=== PATIENT | male | born 1980 | race Asian ===

== ENCOUNTER 2024-05-29 14:32 | Emergency (ER) | payer OTHER, SELFPAY ==
[2024-05-29 14:54] VITALS: BP 135/86; PULSE 96; RESP 16; TEMP 36.6; O2SAT 99; BMI 28.7
--- NOTE | 2024-05-29 15:04 | ED.BACK ---
HPI - Back Pain/Injury <Trina Harris PA-C - Last Filed: 05/29/24 18:39> General Chief Complaint: Back Pain/Injury Stated Complaint: back px Time Seen by Provider: 05/29/24 15:04 Source: patient History of Present Illness HPI Narrative: Patient is a very pleasant 43-year-old male presents to the emergency room department with exacerbation of his right-sided thoracic back pain. Patient works at [employer], he hurt his back recently, was seen at [facility] urgent care for a work-related L and I injury. He was prescribed prednisone, and denies codeine. He has an appointment to see a spine surgeon tomorrow an MRI is scheduled this coming week. However he currently is taking nonsteroidals, he is finished the prednisone, and is currently taking the tizanidine with very limited relief of his discomfort and pain. Presents now to the emergency department with an exacerbation of his pain, he is unable to really walk, ambulate, all movement causes him extreme discomfort and pain, he was unable to sleep last night. Patient here requesting pain relief. No signs of cauda equina. His pain has not changed. He is chest pain has not moved. It just is not being well treated. Related Data Previous Rx's Medication Instructions Recorded ketorolac 10 mg tablet 10 mg PO TID PRN pain 5 days #15 05/29/24 tabs methocarbamol 750 mg tablet 750 mg PO TID #20 tabs 05/29/24 oxycodone 5 mg tablet 5 mg PO .qhs pain #10 tabs 05/29/24 Allergies Allergy/AdvReac Type Severity Reaction Status Date / Time No Known Drug Allergies Allergy Verified 05/29/24 14:56 Review of Systems <Trina Harris PA-C - Last Filed: 05/29/24 18:39> Review of Systems Narrative: Negative except as above Musculoskeletal Comments: Right-sided thoracic pain Patient History <Trina Harris PA-C - Last Filed: 05/29/24 18:39> tobacco type: vaping alcohol intake frequency: a few times a week Substance Use Type: does not use Exam <Trina Harris PA-C - Last Filed: 05/29/24 18:39> Initial Vital Signs Initial Vital Signs: Vital Signs Temperature 98 F 09/22/24 14:54 Pulse Rate 96 H 05/29/24 14:54 Respiratory Rate 16 05/29/24 14:54 Blood Pressure 135/86 05/29/24 14:54 Pulse Oximetry 99 05/29/24 14:54 Oxygen Delivery Method Room Air 05/29/24 14:54 Reviewed Const General: cooperative, healthy appearing, well developed and acute distress (Severe back pain) Eyes Pupils: PERRL EOM: EOM intact bilaterally Back/Spine/Pelvis Other: Right-sided paraspinal thoracic pain. Patient is standing in the room. Appears very uncomfortable. Any type of subtle movements, caused the patient extreme discomfort and pain. Skin Other: Warm pink and dry. Neuro General: patient alert, patient awake, patient oriented x3 and oriented Cranial Nerves: CN's II-XI intact bilaterally Cognition: normal cognition Speech: speech normal Gait: other (Limited due to pain) Extrem Other: Slow antalgic gait, patient is not moving very quickly, his range of motion of his extremities limited due to the fact that exacerbates his pain. Psych Appearance: grossly normal Mental Status: mental status grossly normal Speech and Movement: speech and movement normal Mood: congruent mood Affect: normal affect Attitude: cooperative Thought Process: normal Thought Content: normal Judgment: judgment good <Rohan Hubbard DO - Last Filed: 06/02/24 17:54> Initial Vital Signs Initial Vital Signs: Vital Signs Temperature 98 F 05/29/24 14:54 Pulse Rate 96 H 05/29/24 14:54 Respiratory Rate 16 05/29/24 14:54 Blood Pressure 135/86 05/29/24 14:54 Pulse Oximetry 99 05/29/24 14:54 Oxygen Delivery Method Room Air 05/29/24 14:54 Course <Trina Harris PA-C - Last Filed: 05/29/24 18:39> Orders Ordered: Discontinued Medications Ketorolac Tromethamine (Ketorolac 30 Mg/Ml Vial) 30 mg IM NOW ONE Stop: 05/29/24 15:27 Last Admin: 05/29/24 15:38 Dose: 30 mg Documented By: KAYLEIGH Oxycodone HCl (Oxycodone Ir 5 Mg Tablet) 5 mg PO NOW ONE Stop: 05/29/24 15:29 Last Admin: 05/29/24 15:42 Dose: 5 mg Documented By: SB Vital Signs Vital signs: Vital Signs - 8 hr 05/29/24 14:54 05/29/24 15:55 Temperature 98 F Pulse Rate 96 H 90 Respiratory Rate 16 16 Blood Pressure 135/86 131/88 Pulse Oximetry 99 99 Oxygen Delivery Method Room Air Room Air Reviewed <Rohan Hubbard DO - Last Filed: 06/02/24 17:54> Orders Ordered: Discontinued Medications Ketorolac Tromethamine (Ketorolac 30 Mg/Ml Vial) 30 mg IM NOW ONE Stop: 05/29/24 15:27 Last Admin: 05/29/24 15:38 Dose: 30 mg Documented By: KAYLEIGH Oxycodone HCl (Oxycodone Ir 5 Mg Tablet) 5 mg PO NOW ONE Stop: 05/29/24 15:29 Last Admin: 05/29/24 15:42 Dose: 5 mg Documented By: SB Vital Signs Vital signs: Vital Signs - 8 hr 05/29/24 14:54 05/29/24 15:55 Temperature 98 F Pulse Rate 96 H 90 Respiratory Rate 16 16 Blood Pressure 135/86 131/88 Pulse Oximetry 99 99 Oxygen Delivery Method Room Air Room Air MDM - Back Pain/Injury <Trina Harris PA-C - Last Filed: 05/29/24 18:39> [facility] Narrative Medical decision making narrative: Pleasant 43-year-old male currently has right-sided thoracic back pain/paraspinal pain. Currently being treated from a recent L and I injury. Was prescribed prednisone, tizanidine, currently not controlling his discomfort and pain. Currently taking nonsteroidals with limited relief. Currently has an appointment with a spine surgeon and an MRI this coming week. Here for pain control. No signs of cauda equina. No changes in his pain. No sciatic nerve pain. Patient had a rough night was unable to sleep last night. Patient appears extremely uncomfortable. Currently no recent injury, trauma or fall. 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 Exam is negative for any acute red flags. Patient given Toradol shot, and oral oxycodone. Patient has pain relief prior discharge. Patient ambulating much better prior to discharge. Differential diagnosis; exacerbation of ongoing right-sided thoracic paraspinal musculoskeletal pain Discharge Plan Departure Patient Disposition: Home Clinical Impression: Thoracic back pain Qualifiers: Chronicity: acute Back pain laterality: right Qualified Code(s): M54.6 - Pain in thoracic spine Thoracic myofascial strain Qualifiers: Encounter type: initial encounter Qualified Code(s): S29.019A - Strain of muscle and tendon of unspecified wall of thorax, initial encounter Instructions: DI for Muscle Strain, DI for Back Spasm Prescriptions: New methocarbamol 750 mg tablet 750 mg PO TID Qty: 20 0RF ketorolac 10 mg tablet 10 mg PO TID PRN (Reason: pain) 5 Days Qty: 15 0RF oxycodone 5 mg tablet 5 mg PO .qhs Qty: 10 0RF Referrals: Miscellaneous,Doctor, MD [Primary Care Provider] - Stand Alone Forms: Patient Portal/API ED Sign-out <Rohan Hubbard, - Last Filed: 06/02/24 17:54> Cosign ED Attending Cosignature Attestation: Dr Hubbard Co-Sign Statement: I was available for consultation during this patient's emergency department visit. This chart is signed by myself for administrative purposes only. I did not have direct contact with this patient during this visit. They were seen independently by the APC.
[2024-05-29] MEDS: KETOROLAC 30 MG/ML VIAL IM (15:38)
[2024-05-29] MEDS: OXYCODONE IR 5 MG TABLET PO (15:42)
[2024-05-29 15:55] VITALS: BP 131/88; PULSE 90; RESP 16; O2SAT 99
== END 2024-05-29 16:00 | disposition home or self-care (01) ==
PROVIDERS: Emergency Provider Physician Assistant
DX: S29.019A Strain of muscle and tendon of unspecified wall of thorax, initial encounter (principal); X50.1XXA Overexertion from prolonged static or awkward postures, initial encounter; Y99.0 Civilian activity done for income or pay
CPT/HCPCS: 96372; 99283; 99284; J1885

== ENCOUNTER 2024-06-05 14:44 | Inpatient (IN) | payer SELFPAY ==
[2024-06-05] VITALS (16 sets, daily range): BP systolic 107–141; BP diastolic 68–83; PULSE 82–99; RESP 16–20; TEMP 36.5–37.4; O2SAT 94–100; BMI 28.7
[2024-06-05] MEDS: KETOROLAC 30 MG/ML VIAL 15 MG IV (15:29)
[2024-06-05 18:18] LABS: Urine Volume 10mL (spun)
[2024-06-05 18:19] LABS: Bacteria Urine None Seen; RBC Urine 0-1/HPF (0-5/HPF); Squamous Epithelial Cell Urine None Seen (0-5/HPF); WBC Urine 0-1/HPF (0-5/HPF)
[2024-06-05 18:19] LABS: Add Manual Diff / Slide Review NO; Basophils Absolute Auto 100 /uL (0-100); Basophils Percent Auto 0.4 % (0-2); Eosinophils Absolute Auto 100 /uL (0-450); Eosinophils Percent Auto 0.6 % (2-4); Hematocrit 30.9 % (41-53); Hemoglobin 10.3 g/dL (13.5-17.5); Lymphocytes Absolute Auto 1200 /uL (1100-4500); Lymphocytes Percent Auto 8.9 % (25-40); Mean Corpuscular HGB Conc 33.1 % (30-36); Mean Corpuscular Hemoglobin 24.8 PG (26-34); Mean Corpuscular Volume 74.8 fL (80-100); Monocytes Absolute Auto 1400 /uL (0-900); Monocytes Percent Auto 9.9 % (3-14); Neutrophils Absolute Auto 11100 /uL (1500-7000); Neutrophils Percent Auto 80.2 % (50-75); Platelet Count 692 X10^3/uL (150-400); Red Blood Cell Count 4.14 X10^6/uL (4.5-5.9); Red Cell Distribution Width 14.6 % (11.6-14.8); White Blood Cell Count 13.8 X10^3/uL (4.5-11.0)
[2024-06-05 18:23] LABS: HEMOLYSIS < 15 (0-50)
[2024-06-05 18:25] LABS: Ictotest Urine Positive (Negative)
[2024-06-05 18:26] LABS: BUN Creatinine Ratio 17.9 (6-22); Blood Urea Nitrogen 15 mg/dL (9-20); Carbon Dioxide 21 mmol/L (22-32); Chloride 101 mmol/L (98-107); Estimated Glomerular Filt Rate > 60 mL/min (>60); Glucose 111 mg/dL (70-100); Potassium 4.3 mmol/L (3.4-5.1); Sodium 133 mmol/L (137-145); Uric Acid 4.7 mg/dL (3.5-8.5)
[2024-06-05 18:39] LABS: C-Reactive Protein Quant 14.8 mg/dL (<1.0)
[2024-06-05] MEDS: HYDROCODONE/ACET 5/325 TABLET 1 TAB PO ×2 (18:39→23:49)
[2024-06-05 18:47] LABS: Erythrocyte Sedimentation Rate > 140 MM/HR (0-15)
--- NOTE | 2024-06-05 19:01 | ED_ITS ---
HPI - Extremity Problem General Chief complaint: Extremity Problem,Nontraumatic Stated complaint: Gout Flare Time Seen by Provider: 06/05/24 15:17 Source: patient Mode of arrival: EMS History of Present Illness HPI Narrative: Patient is a 43 old male. History of gout. No other diagnosed medical problems. Takes colchicine at home as needed and allopurinol on a daily basis. Is here for evaluation of what he states is a gout flare. He has had symptoms for the past several days. He was not been able to walk for the past couple days because of the discomfort. Initially started in his right lower extremity but then spread to his left lower extremity in his now in his right arm. He has had polyarthralgia before because of his gout. He was also had gout in all these joints individually. Denies fevers. He has been taking his colchicine at home along with his allopurinol. Related Data Previous Rx's Medication Instructions Recorded methocarbamol 750 mg tablet 750 mg PO TID #20 tabs 05/29/24 oxycodone 5 mg tablet 5 mg PO .qhs pain #10 tabs 05/29/24 Allergies Allergy/AdvReac Type Severity Reaction Status Date / Time No Known Drug Allergies Allergy Verified 05/29/24 14:56 Review of Systems Review of Systems Narrative: See HPI Patient History Social History Smoking Status: Current some day smoker Smoking Status: Current some day smoker tobacco type: vaping alcohol intake frequency: a few times a week Substance Use Type: marijuana Exam Initial Vital Signs Initial Vital Signs: Vital Signs Blood Pressure 117/81 06/05/24 14:47 HENMT Head: normal to inspection and normocephalic Skin General: no rashes or lesions noted Neuro General: patient alert, patient awake and moves all extremities Extrem Other: patient does have warmth and tenderness to palpation of the right knee, right ankle, left ankle, right elbow and right wrist. Course Orders Ordered: ED Orders 06/05/24 15:13 Basic Metabolic Panel Stat C-Reactive Protein Quant Stat Complete Blood Count AUTO DIFF Stat Erythrocyte Sedimentation Rate Stat Uric Acid Stat 06/05/24 17:51 Ictotest Urine Stat Urine Culture Stat Urine Microscopic Stat 06/05/24 18:12 Covid-19 + FLU A/B + RSV - PCR Stat 06/05/24 21:25 Blood Culture Stat Acetaminophen (Acetaminophen 325 Mg Tablet) 650 mg PO Q6H PRN PRN Reason: Fever/Mild Pain (1-3) Hydrocodone Bitart/Acetaminophen (Hydrocodone/Acet 5/325 Tablet) 1 tab PO Q4H PRN PRN Reason: Pain, Moderate (4-6) Colchicine (Colchicine 0.6 Mg Tablet) 0.6 mg PO BID TIFFANY Famotidine (Famotidine 20 Mg Tablet) 20 mg PO BID TIFFANY Sodium Chloride (Normal Saline 0.9%) 1,000 mls @ 75 mls/hr IV CONT TIFFANY Stop: 06/06/24 09:00 Ibuprofen (Ibuprofen 400 Mg Tablet) 400 mg PO Q8HR PRN PRN Reason: Pain, Mild (1-3) Naloxone HCl (Naloxone 0.4 Mg/Ml Vial) 0.2 mg IV Q2MIN PRN PRN Reason: Opiate Reversal Ondansetron HCl (Ondansetron 4 Mg/2 Ml Inj) 4 mg IV Q8HR PRN PRN Reason: Nausea And Vomiting Prednisone (Prednisone 20 Mg Tablet) 20 mg PO DAILY TIFFANY Discontinued Medications Hydrocodone Bitart/Acetaminophen (Hydrocodone/Acet 5/325 Tablet) 1 tab PO NOW ONE Stop: 06/05/24 18:29 Last Admin: 06/05/24 18:39 Dose: 1 tab Documented By: ROSIBEL Colchicine (Colchicine 0.6 Mg Tablet) 1.2 mg PO NOW ONE Stop: 06/05/24 19:04 Last Admin: 06/05/24 19:14 Dose: 1.2 mg Documented By: ROSIBEL Hydromorphone HCl (Hydromorphone 1 Mg Inj) 1 mg IV NOW ONE Stop: 06/05/24 21:10 Last Admin: 06/05/24 21:18 Dose: 1 mg Documented By: ROSIBEL Ketorolac Tromethamine (Ketorolac 30 Mg/Ml Vial) 15 mg IV NOW ONE Stop: 06/05/24 15:18 Last Admin: 06/05/24 15:29 Dose: 15 mg Documented By: JERRELL Prednisone (Prednisone 20 Mg Tablet) 20 mg PO NOW ONE Stop: 06/05/24 21:48 Last Admin: 06/05/24 21:59 Dose: 20 mg Documented By: ROSIBEL Vital Signs Vital signs: Vital Signs - 8 hr 06/05/24 15:00 06/05/24 15:00 06/05/24 18:36 Pulse Rate 85 88 Respiratory Rate Blood Pressure 109/71 Pulse Oximetry 96 95 Oxygen Delivery Method 06/05/24 18:37 06/05/24 18:37 06/05/24 18:37 Pulse Rate 82 83 Respiratory Rate 16 Blood Pressure 107/70 107/70 Pulse Oximetry 99 98 Oxygen Delivery Method Room Air 06/05/24 21:27 06/05/24 21:28 06/05/24 21:28 Pulse Rate 94 H 91 H Respiratory Rate Blood Pressure 118/79 Pulse Oximetry 94 98 Oxygen Delivery Method 06/05/24 21:30 06/05/24 21:30 06/05/24 21:40 Pulse Rate 95 H Respiratory Rate Blood Pressure 123/82 Pulse Oximetry 98 97 Oxygen Delivery Method 06/05/24 21:46 06/05/24 21:47 Pulse Rate 96 H Respiratory Rate Blood Pressure 140/83 Pulse Oximetry 99 Oxygen Delivery Method MDM - Extremity (Nontraumatic) Lab Data 06/05/24 15:13 06/05/24 15:13 Labs: Lab Results 06/05/24 06/05/24 06/05/24 Range/Units 15:13 17:51 18:12 WBC 13.8 H (4.5-11.0) X10^3/uL RBC 4.14 L (4.5-5.9) X10^6/uL Hgb 10.3 L (13.5-17.5) g/dL Hct 30.9 L (41-53) % MCV 74.8 L (80-100) fL MCH 24.8 L (26-34) PG MCHC 33.1 (30-36) % RDW 14.6 (11.6-14.8) % Plt Count 692 H (150-400) X10^3/uL Neut % (Auto) 80.2 H (50-75) % Lymph % (Auto) 8.9 L (25-40) % [place] % (Auto) 9.9 (3-14) % Eos % (Auto) 0.6 L (2-4) % Baso % (Auto) 0.4 (0-2) % Neut # (Auto) 77141 H (7262-8599) /uL Lymph # (Auto) 1200 (9337-1185) /uL [place] # (Auto) 1400 H (0-900) /uL Eos # (Auto) 100 (0-450) /uL Baso # (Auto) 100 (0-100) /uL ESR > 140 H (0-15) MM/HR Sodium 133 L (137-145) mmol/L Potassium 4.3 (3.4-5.1) mmol/L Chloride 101 (98-107) mmol/L Carbon Dioxide 21 L (22-32) mmol/L BUN 15 (9-20) mg/dL Creatinine 0.84 (0.66-1.25) mg/dL Estimated GFR > 60 (>60) mL/min BUN/Creatinine Ratio 17.9 (6-22) Glucose 111 H (70-100) mg/dL Uric Acid 4.7 (3.5-8.5) mg/dL Calcium 9.0 (8.4-10.2) mg/dL C-Reactive Protein 14.8 H (<1.0) mg/dL Ur Bilirubin Confirm Positive H (Negative) Urine RBC 0-1/hpf (0-5/HPF) Urine WBC 0-1/hpf (0-5/HPF) Ur Squamous Epith Cells None seen (0-5/HPF) Urine Bacteria None seen (None) Vol Urine Centrifuged 10ml (spun) SARS-CoV-2 (PCR) Negative (Negative) Influenza A (RT-PCR) Flu a negative (NEGATIVE) Influenza B (RT-PCR) Flu b negative (NEGATIVE) RSV (PCR) Negative (Negative) Urine Dip Bedside Urine Glucose Negative Bedside Urine Bilirubin + 1 Bedside Urine Ketone ++ 40 Urine Specific [place] 1.015 Bedside Urine Occult Blood - Negative Bedside Urine pH 6.0 Bedside Urine Protein +/- 15 Bedside Urine Urobilinogen +/- 1mg Bedside Urine Nitrite - Negative Bedside Urine Leukocytes +/- 15 Esterase MDM Narrative Medical decision making narrative: Patient does have a leukocytosis. Also has an elevation in his ESR and CRP however his uric acid is negative. He was afebrile. His history is consistent with gout. He states he has been diagnosed with gout in his had gout in all these joints in conjunction and also independently in the past. Also considered other etiologies such as septic joint however the joints are not necessarily red. There was no signs of cellulitis. Has no chest pain or shortness of breath or fevers. Will hold on antibiotics however blood cultures were obtained. Patient can not ambulate because of his discomfort despite medications here in the ER. He was given a dose of colchicine which provided no relief to his pain. Discussed the case with Dr. Carlos hospitalist on-call who will admit for further evaluation and treatment. A dose of oral steroids was given here in the emergency department prior to admission. Discharge Plan Departure Patient Disposition: Admitted as Observation Clinical Impression: Gout, Polyarthralgia Admit Date/Time: 06/05/24 21:47 Admit Provider: Kalen Carlos
[2024-06-05] MEDS: COLCHICINE 0.6 MG TABLET 1.2 MG PO (19:14)
[2024-06-05 20:02] LABS: Influenza A - CEPHEID Flu A NEGATIVE (NEGATIVE); Influenza B - CEPHEID Flu B NEGATIVE (NEGATIVE); Respiratory Syncytial Virus Negative (Negative)
[2024-06-05 20:05] LABS: COVID-19 CEPHEID 4-PLEX PCR Negative (Negative)
[2024-06-05] MEDS: HYDROMORPHONE 1 MG INJ IV (21:18)
[2024-06-05] MEDS: predniSONE 20 MG TABLET PO (21:59)
[2024-06-05] MEDS: SODIUM CHLORIDE 0.9% 1,000 ML 75 ML IV (23:12)
[2024-06-05] MEDS: FAMOTIDINE 20 MG TABLET PO (23:49)
[2024-06-06] MEDS: OXYCODONE IR 5 MG TABLET PO ×6 (01:31→23:41)
[2024-06-06] MEDS: KETOROLAC 30 MG/ML VIAL 15 MG IV ×2 (02:26→14:00)
[2024-06-06] MEDS: HYDROMORPHONE 1 MG INJ IV ×3 (02:27→15:18)
[2024-06-06 04:00] VITALS: BP 98/61; PULSE 88; RESP 16; TEMP 35.8; O2SAT 97
--- NOTE | 2024-06-06 04:25 | PM.HP.1 ---
History of Present Illness History of Present Illness Chief complaint: Gout Flare Narrative: 43-year-old man with past medical history of severe gout presents with multiple joint pain. Per the patient report, the patient has severe gout with multiple flare-up in the past. The patient states that he has multiple joints affected. The patient is on allopurinol daily with colchicine as needed when he has gout flare up. However over the last few days, the patient has multiple joint both in his upper and lower extremity with increasing pain and warmth. The patient denies any swelling in his joint. The patient did take multiple dose of colchicine at home without any relief. The patient also takes them oxycodone to help with his pain but was unsuccessful. Otherwise the patient denies any fever, chills, nausea, vomiting, diarrhea, chest pain or shortness of breath . In our emergency room, the patient was hemodynamically stable. WBC was 13 and hemoglobin at 10. ESR and CRP are elevated. Due to severe pain our ER physician had to give both oral opioid and IV Dilaudid. The patient also received colchicine, IV toradol and oral prednisone.? PFSH Social History household members: significant other Smoking Status: Current some day smoker Meds Home Medications and Allergies Home Medications Medication Instructions Recorded Confirmed Type methocarbamol 750 mg tablet 750 mg PO TID #20 tabs 05/29/24 06/05/24 Rx allopurinol 100 mg tablet 300 mg PO DAILY gout pain 06/05/24 06/05/24 History oxycodone 5 mg tablet 5 mg PO Q3-4H PRN Pain (Scale 06/05/24 06/05/24 History Score 4-6) Allergies Allergy/AdvReac Type Severity Reaction Status Date / Time No Known Drug Allergies Allergy Verified 05/29/24 14:56 Review of Systems Review of Systems ROS: Yes All systems reviewed with the patient and are negative except as otherwise documented Exam Vital Signs (past 8 hours): - 06/05/24 21:27 06/05/24 21:28 06/05/24 21:28 Temperature Pulse Rate 94 H 91 H Respiratory Rate Blood Pressure 118/79 Pulse Oximetry 94 98 Oxygen Delivery Method Oxygen Flow Rate 06/05/24 21:30 06/05/24 21:30 06/05/24 21:40 Temperature Pulse Rate 95 H Respiratory Rate Blood Pressure 123/82 Pulse Oximetry 98 97 Oxygen Delivery Method Oxygen Flow Rate 06/05/24 21:46 06/05/24 21:47 06/05/24 21:53 Temperature 99.3 F Pulse Rate 96 H Respiratory Rate Blood Pressure 140/83 Pulse Oximetry 99 Oxygen Delivery Method Oxygen Flow Rate 06/05/24 22:00 06/05/24 22:00 06/05/24 22:30 Temperature Pulse Rate 90 84 Respiratory Rate Blood Pressure 134/83 Pulse Oximetry 99 98 Oxygen Delivery Method Room Air Oxygen Flow Rate 06/05/24 22:30 06/05/24 23:00 06/06/24 04:00 Temperature 97.7 F 96.5 F L Pulse Rate 93 H 88 Respiratory Rate 19 16 Blood Pressure 141/80 H 118/68 98/61 Pulse Oximetry 100 97 Oxygen Delivery Method Oxygen Flow Rate 0 0 Oxygen Delivery Method Room Air Oxygen Flow Rate 0 Narrative Exam Narrative: GENERAL: The patient is not in any acute distressed. Awake and alert. HEENT: Nonicteric sclerae, PERRLA, EOMI. Oropharynx clear. Moist mucous membranes. Conjunctivae appear well perfused. HEART: Regular rate and rhythm without murmurs. No lower extremities edema. LUNGS: Clear to auscultation bilaterally. No wheezing, crackles or rhonchi ABDOMEN: Soft, positive bowel sounds, nontender. SKIN: No rash, no excessive bruising, petechiae, or purpura. NEUROLOGIC: AxO x 3. Cranial nerves II-XII intact without motor/sensory deficit. Objective Labs 06/05/24 15:13 06/05/24 15:13 Labs: Laboratory Results - last 24 hr 06/05/24 06/05/24 06/05/24 15:13 17:51 18:12 WBC 13.8 H RBC 4.14 L Hgb 10.3 L Hct 30.9 L MCV 74.8 L MCH 24.8 L MCHC 33.1 RDW 14.6 Plt Count 692 H Neut % (Auto) 80.2 H Lymph % (Auto) 8.9 L [place] % (Auto) 9.9 Eos % (Auto) 0.6 L Baso % (Auto) 0.4 Neut # (Auto) 88402 H Lymph # (Auto) 1200 [place] # (Auto) 1400 H Eos # (Auto) 100 Baso # (Auto) 100 ESR > 140 H Sodium 133 L Potassium 4.3 Chloride 101 Carbon Dioxide 21 L BUN 15 Creatinine 0.84 Estimated GFR > 60 BUN/Creatinine Ratio 17.9 Glucose 111 H Uric Acid 4.7 Calcium 9.0 C-Reactive Protein 14.8 H Ur Bilirubin Confirm Positive H Urine RBC 0-1/hpf Urine WBC 0-1/hpf Ur Squamous Epith Cells None seen Urine Bacteria None seen Vol Urine Centrifuged 10ml (spun) SARS-CoV-2 (PCR) Negative Influenza A (RT-PCR) Flu a negative Influenza B (RT-PCR) Flu b negative RSV (PCR) Negative Assessment & Plan Assessment & Plan narrative: Acute severe flare up of gout. Admit the patient to medical observation. Of note multiple joint is affected in both upper and lower extremities. The patient pain is severe and he's unable to ambulate at this time.? Will continue colchicine, IV toradol as needed as well as IV Dilaudid. Will continue prednisone. IV fluid.? DVT prophylaxis SCDs and early ambulation.? Code status full code.? Disposition likely home in 1 to 2 days. Time-Based Coding :: [TOTAL MINUTES] spent with patient and on the chart (including review of chart, obtaining history, exam, reviewing outside data, placing orders, documenting exam and treatment plan, and counseling patient) on [DATE].
[2024-06-06] MEDS: ACETAMINOPHEN 325 MG TABLET 650 MG PO ×2 (07:37→14:00)
[2024-06-06 08:00] VITALS: BP 108/70; PULSE 78; RESP 16; TEMP 36.1; O2SAT 99
[2024-06-06 08:28] LABS: Add Manual Diff / Slide Review NO; Basophils Absolute Auto 0 /uL (0-100); Basophils Percent Auto 0.2 % (0-2); Eosinophils Absolute Auto 0 /uL (0-450); Hematocrit 29.7 % (41-53); Hemoglobin 9.6 g/dL (13.5-17.5); Lymphocytes Absolute Auto 900 /uL (1100-4500); Lymphocytes Percent Auto 6.5 % (25-40); Mean Corpuscular HGB Conc 32.2 % (30-36); Mean Corpuscular Hemoglobin 24.1 PG (26-34); Mean Corpuscular Volume 74.9 fL (80-100); Monocytes Absolute Auto 1000 /uL (0-900); Monocytes Percent Auto 7.3 % (3-14); Neutrophils Absolute Auto 11400 /uL (1500-7000); Platelet Count 700 X10^3/uL (150-400); Red Blood Cell Count 3.97 X10^6/uL (4.5-5.9); Red Cell Distribution Width 14.1 % (11.6-14.8); White Blood Cell Count 13.2 X10^3/uL (4.5-11.0)
[2024-06-06] MEDS: COLCHICINE 0.6 MG TABLET PO ×2 (08:36→19:47)
[2024-06-06] MEDS: FAMOTIDINE 20 MG TABLET PO ×2 (08:36→19:47)
[2024-06-06] MEDS: predniSONE 20 MG TABLET PO ×2 (08:36→11:32)
[2024-06-06] MEDS: methocarbamoL 500 MG TABLET 750 MG PO ×3 (08:36→19:45)
[2024-06-06] MEDS: allopurinoL 100 MG TABLET 300 MG PO (08:36)
[2024-06-06] MEDS: SENNOSIDES 8.6 MG TABLET PO ×2 (08:36→19:46)
[2024-06-06] MEDS: DOCUSATE 100 MG CAPSULE PO (08:36)
[2024-06-06 08:46] LABS: BUN Creatinine Ratio 22.9 (6-22); Blood Urea Nitrogen 19 mg/dL (9-20); Calcium 8.5 mg/dL (8.4-10.2); Carbon Dioxide 22 mmol/L (22-32); Chloride 99 mmol/L (98-107); Estimated Glomerular Filt Rate > 60 mL/min (>60); Glucose 148 mg/dL (70-100); HEMOLYSIS < 15 (0-50); Potassium 4.4 mmol/L (3.4-5.1); Sodium 130 mmol/L (137-145)
[2024-06-06] MEDS: polyethylene glycoL 3350 17 GM POWD.PACK PO (09:30)
--- NOTE | 2024-06-06 11:17 | PT.IIE ---
Physical Therapy Inpatient Evaluation/Re-Eval M1 PT/OT-IP Prior Functional Status Start: 06/06/24 10:22 Freq: NEEDED Status: Active Protocol: Document 06/06/24 10:38 MB (Rec: 06/06/24 11:17 MB [id number]) Medical Review Prior Functional Status Medical History Reviewed Yes Diet/Fluid Consistency Regular Communication WNLs. For diet, pt states that he has worked on his diet as far as gout instigators Mobility and Gait I, worked at [employer], commuted to work Activities of Daily Living and IADL's I Social History Household Members significant other Living Arrangements House Number of Floors (Floors) One Floor Number of Stairs To Enter/Railing? 1 platform step to enter Home Environment Standard Height Toilet,Walk in Shower,Tub/Shower Home Equipment Hand Held Shower Additional Social History Comment Pt works for [employer] and currently on strike M2 PT-IP Current Condition Start: 06/06/24 10:22 Freq: NEEDED Status: Active Protocol: Document 06/06/24 10:38 MB (Rec: 06/06/24 11:17 MB [id number]) Physical Therapy Current Condition Current Condition Evaluation Date 06/06/24 Treatment Diagnosis Gout M3 PT-IP Subjective Start: 06/06/24 10:22 Freq: NEEDED Status: Active Protocol: Document 06/06/24 10:38 MB (Rec: 06/06/24 11:17 MB [id number]) Subjective Physical Therapy Visit Type Type Initial Evaluation Visit Start Time 10:38 Visit Stop Time 11:05 Number of RIVET PASSER Visits 0 Physical Therapy Visit Comments Patient Comments Pt reports pain has been progressive, started in right arm and elbow, then to knees, then to feet and then in left arm and elbow. He has been in the recliner at home for two weeks. Therapy Pain Assessment Pain When Pain Assessed During Mobility Pain Present Pain Present Pain Reported Location all limbs Intensity 12 Scale Used Numeric (0 - 10) M4 PT-IP Mobility and Gait Start: 06/06/24 10:22 Freq: NEEDED Status: Active Protocol: Document 06/06/24 10:38 MB (Rec: 06/06/24 11:17 MB [id number]) PT-Bed Mobility Assessment Supine to Sit Supine to Sit Standby Assistance,Bedrails Sit to Supine Sit to Supine Standby Assistance,Bedrails Scooting Scooting to Edge of Bed Standby Assistance Scooting Up and Down in Bed Standby Assistance PT-Transfer Assessment Sit to and From Stand Sit to and from Stand Minimal Assistance,1 Person Assistance,Use of Upper Extremities Equipment Transfer Assistive Device None Orthotic/Prosthetic Devices or Brace: No Comments Mobility Comments Pt states that he cannot stand all the way up, pushes walker out from in front of him and returns to sitting EOB. High pain in swollen joints, worse in feet with attempted standing PT-Balance Assessment Sitting Balance and Reactions Static Sitting Balance Ability Normal Dynamic Sitting Balance Ability Normal Standing Balance and Reactions Static Standing Balance Ability Poor Dynamic Standing Balance Ability Poor M5 PT-IP Objective Assessments Start: 06/06/24 10:22 Freq: NEEDED Status: Active Protocol: Document 06/06/24 10:38 MB (Rec: 06/06/24 11:17 MB [id number]) Orientation Orientation/Cognition Level of Alertness Alert Orientation Name,Age,Birthday,Month,Date, Year,Day of Week,Place, Situation Language Function Ability No Deficits Noted Safety Awareness Decreased Safety Awareness Memory Description No Deficits Noted Gross Range of Motion Upper Extremity ROM Assessment Bilaterally Impaired Impairments Shoulders normal, elbow wrists and hands are swollen and painful and pt self-limits ROM Lower Extremity ROM Assessment Bilaterally Impaired Impairments Hips are normal and knees, ankles and feet are swollen and painful and pt self-limits ROM Strength Upper Extremity Strength Assessment Bilaterally Impaired Lower Extremity Strength Assessment Bilaterally Impaired Comments Strength Comments Pt cannot tolerate formal MMT d/t pain and range limitations , functional weakness B elbows , wrists, hands, knees, ankles and feet no greater than 2/5 observed Coordination Assessment Gross Coordination Gross Coordination Impaired Sensation Assessment Comments Sensation Comments Pt does not tolerate PT touching him d/t pain Muscle Tone Muscle Tone WNL Yes M6 PT-IP Treatment Start: 06/06/24 10:22 Freq: NEEDED Status: Active Protocol: Document 06/06/24 10:38 MB (Rec: 06/06/24 11:17 MB [id number]) Physical Therapy Treatment Education Education Provided Safety M7 PT-IP Assessment and Plan Start: 06/06/24 10:22 Freq: NEEDED Status: Active Protocol: Document 06/06/24 10:38 MB (Rec: 06/06/24 11:17 MB [id number]) PT Summary Assessment and Plan Potential Rehabilitation Potential Fair Status of Condition at Evaluation Evolving Summary Impairments Pain,ROM,Strength,Balance, Coordination,Sensation,Bed Mobility,Transfers,Gait, Activity Tolerance Progress Towards Goals Slow Progress due to Pain Assessment Summary Pt presents with pain and edema B elbows, wrists, hands, knees, ankles and feet and he does not tolerate formal range or MMT. He mobilizes in bed with use of rail and he cannot stand all the way up or complete SPT to recliner this a.m. Encouraged pt to ask for assistance from nsg for mobility and to try to get up to the recliner with assistance for supper tonight. Con't to progress mobility as pt tolerates. Goals Bed Mobility Goal Independent Transfer Goal Independent,Front Wheeled Walker,Four Wheeled Walker Gait Goal Independent,Front Wheel Walker ,Four Wheel Walker Gait Distance 150 Other Goals Pt will ascend and descend platform step with LRAD and no more than CGA to allow safe home entry. Progress gait to without AD or to LRAD Days to Meet Goals 10 Frequency of Treatment Frequency Of Treatment Once a Day Treatment Plan Physical Therapy Treatment Plan Bed Mobility Training,Transfer Training,Gait Training, Therapeutic Exercise,Balance Retraining,Discharge Planning, Hot or Cold Pack,Neuromuscular Re-ed,Coordination Retraining ,Manual Therapy Weight Bearing Status Allowed Weight Bearing Amount (enter % No restrictions or #) (%) Recommendations To Nursing Amount of Assist Needed 2 Person Assist Discharge Recommendations PT Discharge Recommendations Home with Assistance Other Discharge Recommendations Pt has not yet mobilized much with PT and will progress recs as appropriate including LRAD rec, limited mobilization d/t pain Transportation Needs at Discharge Private Vehicle
--- NOTE | 2024-06-06 11:36 | PM.PN.1 ---
Subjective Subjective Interval history: From night doctor: 3-year-old man with past medical history of severe gout presents with multiple joint pain. Per the patient report, the patient has severe gout with multiple flare-up in the past. The patient states that he has multiple joints affected. The patient is on allopurinol daily with colchicine as needed when he has gout flare up. However over the last few days, the patient has multiple joint both in his upper and lower extremity with increasing pain and warmth. The patient denies any swelling in his joint. The patient did take multiple dose of colchicine at home without any relief. The patient also takes them oxycodone to help with his pain but was unsuccessful. Otherwise the patient denies any fever, chills, nausea, vomiting, diarrhea, chest pain or shortness of breath . In our emergency room, the patient was hemodynamically stable. WBC was 13 and hemoglobin at 10. ESR and CRP are elevated. Due to severe pain our ER physician had to give both oral opioid and IV Dilaudid. The patient also received colchicine, IV toradol and oral prednisone.? S: joints are improving but still sore and swollen. Especially the knees and ankles. He takes chronic allopurinol 300 mg daily. Exam Vital Signs (past 8 hours): - 06/06/24 04:00 06/06/24 08:00 Temperature 96.5 F L 97.0 F L Pulse Rate 88 78 Respiratory Rate 16 16 Blood Pressure 98/61 108/70 Pulse Oximetry 97 99 Oxygen Flow Rate 0 0 Oxygen Delivery Method Room Air Oxygen Flow Rate 0 Narrative Exam Narrative: NAD, alert and oriented. Fluent speech. Lungs are clear, normal rate and effort. Heart is regular, no murmur gallop or rub. Abdomen is soft, non distended. Extremities are free of edema. Swollen knees, not red or warm. Somewhat swollen ankles and MTPs, not red or warm. Minimally tender. Objective Labs 06/06/24 08:10 06/06/24 08:10 Labs: Laboratory Results - last 24 hr 06/05/24 06/05/24 06/05/24 15:13 17:51 18:12 WBC 13.8 H RBC 4.14 L Hgb 10.3 L Hct 30.9 L MCV 74.8 L MCH 24.8 L MCHC 33.1 RDW 14.6 Plt Count 692 H Neut % (Auto) 80.2 H Lymph % (Auto) 8.9 L [place] % (Auto) 9.9 Eos % (Auto) 0.6 L Baso % (Auto) 0.4 Neut # (Auto) 93429 H Lymph # (Auto) 1200 [place] # (Auto) 1400 H Eos # (Auto) 100 Baso # (Auto) 100 ESR > 140 H Sodium 133 L Potassium 4.3 Chloride 101 Carbon Dioxide 21 L BUN 15 Creatinine 0.84 Estimated GFR > 60 BUN/Creatinine Ratio 17.9 Glucose 111 H Uric Acid 4.7 Calcium 9.0 C-Reactive Protein 14.8 H Ur Bilirubin Confirm Positive H Urine RBC 0-1/hpf Urine WBC 0-1/hpf Ur Squamous Epith Cells None seen Urine Bacteria None seen Vol Urine Centrifuged 10ml (spun) SARS-CoV-2 (PCR) Negative Influenza A (RT-PCR) Flu a negative Influenza B (RT-PCR) Flu b negative RSV (PCR) Negative 06/06/24 08:10 WBC 13.2 H RBC 3.97 L Hgb 9.6 L Hct 29.7 L MCV 74.9 L MCH 24.1 L MCHC 32.2 RDW 14.1 Plt Count 700 H Neut % (Auto) 86.0 H Lymph % (Auto) 6.5 L [place] % (Auto) 7.3 Eos % (Auto) 0.0 L Baso % (Auto) 0.2 Neut # (Auto) 84029 H Lymph # (Auto) 900 L [place] # (Auto) 1000 H Eos # (Auto) 0 Baso # (Auto) 0 ESR Sodium 130 L Potassium 4.4 Chloride 99 Carbon Dioxide 22 BUN 19 Creatinine 0.83 Estimated GFR > 60 BUN/Creatinine Ratio 22.9 H Glucose 148 H Uric Acid Calcium 8.5 C-Reactive Protein Ur Bilirubin Confirm Urine RBC Urine WBC Ur Squamous Epith Cells Urine Bacteria Vol Urine Centrifuged SARS-CoV-2 (PCR) Influenza A (RT-PCR) Influenza B (RT-PCR) RSV (PCR) [facility] Social History household members: significant other Smoking Status: Current some day smoker Assessment & Plan Assessment & Plan narrative: 1. Acute gout polyarthritis flare, present on admission and active. This is improving. -continue IV steroids, as well as colchicine. Observation status. LANG: 10/1. Time-Based Coding :: [TOTAL MINUTES] spent with patient and on the chart (including review of chart, obtaining history, exam, reviewing outside data, placing orders, documenting exam and treatment plan, and counseling patient) on [DATE].
--- NOTE | 2024-06-06 13:52 | CM.DANOTE ---
Patient is a 43 yo male who was admitted OBS Status on 06/05/24 for Gout Flare. Pt has [employer] for insurance and his PCP is not listed. EMR was reviewed. Per MD, pt with hx of severe gout and flare ups and admitted for pain management and swelling. Per PT, pt only able to stand limited due to pain and swelling of his joints but typically independent at baseline and anticipating progress for home when stable. SW met briefly bedside with pt and he confirms he lives in [place] with his Sig Other and is active and independent at baseline and does not use DME for ambulation, drives and commutes to work at [employer] but they are currently on strike and not driving in to work at this time. Pt has mostly been staying in his recliner the past week due to pain. Pt preference is home when stable and pain better managed and anticipates his Sig Other can transport home. Pt does not anticipate any further needs once his pain and swelling reduced. Plan: SW to follow for further PT/OT to confirm safe discharge home and any further identified discharge planning needs. DAVID Roque Discharge Planning/Care Management CM Discharge Assessment Start: 06/06/24 13:51 Freq: Status: Active Protocol: Document 06/06/24 13:51 BF (Rec: 06/06/24 13:52 BF [id number]) Discharge Planning Assessment Assigned Supervisor [employer]ic [employer] DAVID Hall DPOA/Assigned Designee Name none Advance Directives? No Advance Directives on File No History Provided By Patient,Medical Record Has Patient been admitted in last 30 No days? Prior Living Arrangements House Household Members significant other Type of transporation used prior to Drives own vehicle admit Independent with ADL's Yes Is patient alert and oriented? Yes Caregiver for Another No Barriers to Discharge No Discharge Plan Home Transportation Arrangement Likely Sig Other will transport at d/c Referrals Initiated None needed Whiteboard Updated in Patient Room with Yes name and ext. # of Supervisor Mechanic [employer]aking Review Status In Process Please Provide Date Initial DC 06/06/24 Assessment Was Performed Next Review Type Continued Stay Review
[2024-06-06 17:00] VITALS: BP 100/52; PULSE 70; RESP 16; TEMP 36.2; O2SAT 99
[2024-06-06 20:00] VITALS: BP 108/73; PULSE 71; RESP 20; TEMP 37; O2SAT 99
[2024-06-07] MEDS: HYDROMORPHONE 1 MG INJ IV (02:45)
[2024-06-07 04:00] VITALS: BP 120/79; PULSE 71; RESP 18; TEMP 37; O2SAT 98
[2024-06-07] MEDS: ACETAMINOPHEN 325 MG TABLET 650 MG PO (04:15)
[2024-06-07] MEDS: OXYCODONE IR 5 MG TABLET PO ×2 (04:15→08:28)
[2024-06-07 08:00] VITALS: BP 106/68; PULSE 67; RESP 16; TEMP 36.1; O2SAT 98
[2024-06-07 08:20] LABS: Hematocrit 29.3 % (41-53); Hemoglobin 9.5 g/dL (13.5-17.5)
[2024-06-07] MEDS: allopurinoL 100 MG TABLET 300 MG PO (08:27)
[2024-06-07] MEDS: predniSONE 20 MG TABLET 40 MG PO (08:28)
[2024-06-07] MEDS: FAMOTIDINE 20 MG TABLET PO ×2 (08:28→20:54)
[2024-06-07] MEDS: COLCHICINE 0.6 MG TABLET PO ×2 (08:29→20:40)
[2024-06-07] MEDS: KETOROLAC 30 MG/ML VIAL 15 MG IV ×2 (08:29→22:13)
[2024-06-07] MEDS: polyethylene glycoL 3350 17 GM POWD.PACK PO (08:29)
[2024-06-07] MEDS: SENNOSIDES 8.6 MG TABLET PO ×2 (08:29→20:40)
[2024-06-07] MEDS: methocarbamoL 500 MG TABLET 750 MG PO ×3 (08:30→20:40)
[2024-06-07 08:43] LABS: BUN Creatinine Ratio 22.7 (6-22); Blood Urea Nitrogen 17 mg/dL (9-20); Calcium 8.7 mg/dL (8.4-10.2); Carbon Dioxide 24 mmol/L (22-32); Chloride 102 mmol/L (98-107); Estimated Glomerular Filt Rate > 60 mL/min (>60); Glucose 109 mg/dL (70-100); HEMOLYSIS < 15 (0-50); Potassium 4.6 mmol/L (3.4-5.1); Sodium 134 mmol/L (137-145)
--- NOTE | 2024-06-07 11:06 | CM.DPC ---
DCP Cont. Reviewed EMR and team rounds for status updates. Pt has been medically cleared for home d/c, his Significant Other will plan to transport him home. No further d/c needs identified at this time.
[2024-06-07] MEDS: HYDROCODONE/ACET 5/325 TABLET 2 TAB PO (11:55)
--- NOTE | 2024-06-07 12:14 | OT.IP.EVAL ---
Occupational Therapy Inpatient Evaluation/Re-Eval M1 PT/OT-IP Prior Functional Status Start: 06/06/24 10:22 Freq: NEEDED Status: Active Protocol: Document 06/07/24 12:15 [facility] (Rec: 06/07/24 12:31 [facility] [id number]) Medical Review Prior Functional Status Medical History Reviewed Yes Diet/Fluid Consistency Regular Communication WNLs. For diet, pt states that he has worked on his diet as far as gout instigators Mobility and Gait I, worked at [employer], commuted to work Activities of Daily Living and IADL's I Social History Household Members significant other Living Arrangements House Number of Floors (Floors) One Floor Number of Stairs To Enter/Railing? 1 platform step to enter Home Environment Standard Height Toilet,Walk in Shower,Tub/Shower Home Equipment Hand Held Shower Additional Social History Comment Pt works for [employer] and currently on strike M2 OT-IP Current Condition Start: 06/07/24 12:14 Freq: Status: Active Protocol: Document 06/07/24 12:15 [facility] (Rec: 06/07/24 12:31 [facility] [id number]) Occupational Therapy Current Condition Current Condition Evaluation Date 06/07/24 Treatment Diagnosis Gout Flare Diagnosis Onset Date 06/05/24 M3 OT- IP Subjective and Pain Start: 06/07/24 12:14 Freq: Status: Active Protocol: Document 06/07/24 12:15 [facility] (Rec: 06/07/24 12:31 [facility] [id number]) OT- Subjective Occupational Therapy Visit Type Type Initial Evaluation Visit Start Time 11:35 Visit Stop Time 12:14 Occupational Therapy Visit Comments Patient Comments Pt agreed to try to get up. Patient/Caregiver Goals To go home. OT Pain Assessment Pain When Pain Assessed At Rest Pain Present Pain Present Pain Reported Location all limbs Intensity 9 Scale Used Numeric (0 - 10) M4 OT- IP ADL's Start: 06/07/24 12:14 Freq: Status: Active Protocol: Document 06/07/24 12:15 [facility] (Rec: 06/07/24 12:31 [facility] [id number]) OT BBL-Kqas-Yvdrbce General Evaluation Self-Feeding Ability Standby Assistance Comments OT Self-Feeding Comments Assist with set-up. OT ADL-Grooming General Evaluation Grooming Ability Standby Assistance OT ADL-Oral Care Comments Oral Care Comments Not performed. OT ADL-Dressing Comments OT Dressing Comments Pt will need assist with dressing due to decreased use of right hand due to gout flare. OT ADL-Toileting Comments OT Toileting Comments Pt agreed best to get a BSC for home use. OT ADL-Bathing Comments OT Bathing Comments Pt will benefit from a shower chair. M5 OT- IP IADL's Start: 06/07/24 12:14 Freq: Status: Active Protocol: Document 06/07/24 12:15 [facility] (Rec: 06/07/24 12:31 [facility] [id number]) OT-Instrumental Activities of Daily Living Deficits IADL Deficits Identified Deficits Home Safety Awareness Awareness of Need for Assistance at Home Good Awareness Ability to Problem Solve Emergency Able to Problem Solve Situations Medication Management Medication Management No Deficits Identified Money Management Money Management No Deficits Identified Meal Preparation Meal Preparation Comments Pt will need assist. Institute Scientist Institute Scientist Comments Pt will need assist. M6 OT- IP Functional Cognition Start: 06/07/24 12:14 Freq: Status: Active Protocol: Document 06/07/24 12:15 [facility] (Rec: 06/07/24 12:31 [facility] [id number]) Cognitive Factors Limiting Selfcare Function Cognitive Ability Level of Alertness Alert Patient Orientation Name,Age,Birthday,Month,Date, Year,Day of Week,Place, Situation Attention Span Ability Capable of Focused Attention, Capable of Sustained Attention Ability to Follow Commands Able to Follow Multi-Step Commands Cognitive Comments Cognitive Assessment Comments Pt able to follow commands for ADL and mobility needs. OT- Vision and Hearing OT- Hearing Assessment OT- Hearing Assessment WFL OT- Vision Assessment Visual Acuity WFL M7 OT- IP Mobility and Balance Start: 06/07/24 12:14 Freq: Status: Active Protocol: Document 06/07/24 12:15 [facility] (Rec: 06/07/24 12:31 [facility] [id number]) OT- Bed Mobility Assessment Supine to Sit Supine to Sit Assist Standby Assistance Sit to Supine Sit to Supine Assist Standby Assistance Scooting Scooting to Edge of Bed Standby Assistance OT-Transfer Assessment Sit to and From Stand Sit to and from Stand Contact Guard Assistance Transfers Transfer Ability Contact Guard Assistance Technique Transfer Destination Bed Transfer Technique Stand Step Pivot Devices Transfer Assistive Devices Gait Belt,Platform Walker Comments Mobility Comments Pt able to get to the edge of bed with increased time. CGA to stand to the fww with right platform, CGA to walk to the window and back with very flexed posture. OT- Balance Assessment Sitting Balance and Reactions Static Sitting Balance Ability Good Dynamic Sitting Balance Ability Good Standing Balance and Reactions Static Standing Balance Ability Fair Dynamic Standing Balance Ability Poor M8 OT- IP Objective Assessments Start: 06/07/24 12:14 Freq: Status: Active Protocol: Document 06/07/24 12:15 [facility] (Rec: 06/07/24 12:31 [facility] [id number]) OT Gross Range of Motion Upper Extremity Range of Motion Assessment Bilaterally Impaired ROM Impairments Decreased at edge ROM RUE> LUE . OT Strength Comments Strength Comments At least 3-/5 throughout, not formally tested due to pain from gout flare. M9 OT- IP Assessment and Plan Start: 06/07/24 12:14 Freq: Status: Active Protocol: Document 06/07/24 12:15 [facility] (Rec: 06/07/24 12:31 [facility] [id number]) OT Summary Assessment and Plan Potential Rehabilitation Potential Good Analytic Complexity at Evaluation Moderate Summary OT Impairments Pain,Range of Motion,Strength, Balance,Functional Mobility, Self-Feeding,Grooming,Dressing ,Toileting,Bathing,Toilet Transfers,Shower Transfers, Activity Tolerance Progress Towards Goals Slow Progress due to Pain,Slow Progress due to Medical Issues,Slow Progress due to Activity Tolerance Assessment Summary Pt MOD complexity and main barriers are step, pain, decreased strength, ROM, and will need assist for ADL and mobility needs at this time. Pt will benefit from a BSC, shower chair, platform FWW, and wc. Pt to go home when medically stable. Goals Self-Feeding Goal Independent Grooming Goal Independent Dressing Goal Independent Toileting Goal Independent Bathing Goal Standby Assistance Toilet Transfer Goal Independent Shower Transfer Goal Standby Assistance Days to Meet Goals 7 Frequency of Treatment Frequency Of Treatment Once a Day Other frequency 5x/week Treatment Plan OT Treatment Plan ADL Training,Functional Mobility,Patient/Family Education,Discharge Planning Discharge Recommendations OT Discharge Recommendations Home with Assistance Home Equipment Needs platform walker versus fww, BSC, shower chair, wc Transportation Needs at Discharge Private Vehicle
--- NOTE | 2024-06-07 14:55 | PT.IPTN ---
Physical Therapy Treatment Note M2 PT-IP Current Condition Start: 06/06/24 10:22 Freq: NEEDED Status: Active Protocol: Document 06/06/24 10:38 MB (Rec: 06/06/24 11:17 MB [id number]) Physical Therapy Current Condition Current Condition Evaluation Date 06/06/24 Treatment Diagnosis Gout M3 PT-IP Subjective Start: 06/06/24 10:22 Freq: NEEDED Status: Active Protocol: Document 06/07/24 14:55 AB (Rec: 06/07/24 16:56 AB [id number]) Subjective Physical Therapy Visit Type Type Treatment Note Visit Start Time 14:55 Visit Stop Time 15:20 Number of GENERATING STATION MECHANIC Visits 0 Physical Therapy Visit Comments Patient Comments agreeable to do PT Therapy Pain Assessment Pain When Pain Assessed At Rest Pain Present Pain Present Pain Reported Location all limbs Intensity 5 Scale Used increases >10 with weight bearing Pain Behaviors Guarding,Wincing Pain Management Techniques Distraction,Elevation, Modification of Treatment,Re- positioning,Timing of Activity with Medications M4 PT-IP Mobility and Gait Start: 06/06/24 10:22 Freq: NEEDED Status: Active Protocol: Document 06/07/24 14:55 AB (Rec: 06/07/24 16:56 AB [id number]) PT-Bed Mobility Assessment Supine to Sit Supine to Sit Standby Assistance Sit to Supine Sit to Supine Standby Assistance PT-Transfer Assessment Sit to and From Stand Sit to and from Stand Standby Assistance Equipment Transfer Assistive Device Gait Belt,Front Wheeled Walker Orthotic/Prosthetic Devices or Brace: No Comments Mobility Comments pt supine in bed and agreeable to do PT. pt wanting to go home today. completed supine to sit SBA. able to sit on EOB SBA. completed sit to stand SBA and ambulated in room using FWW ~ 10 ft CGA to min A and cues. pt with c/o R wrist pain and unable to put weight due to pain. pt leans on FWW with R forearm with stooped posture. c/o increase pain on B feet/knees/elbow/ wrists. pt also refused to put non-skid socks on due to pain . informed pt regarding going into the house using FWW since pt was leaning on FWW and relying a lot for support. pt impulsive and stated that he can do it and lifted FWW up to simulate stair climbing but with LOB requiring min A for steadiness. pt ambulated back to the bed and lay back down SBA. informed pt regarding safety and educated again on how to do stairs but pt refused to do stairs. stated that if he needs to stay another night, he is ok with that than putting more work to his family to assist him. also informed pt regarding options for getting a FWW. pt will let therapy know if he wants one from [facility] or not. Gait Assessment Gait Gait Assistance Required: Contact Guard Assist,Minimum Assistance,1 Person Assist Assistive Devices Assistive Device Gait Belt,Front Wheeled Walker Orthotic/Prosthetic Devices or Brace: No Gait Deviations General Gait Pattern Antalgic,Decreased Stride Length,Decreased Feet Clearance,Flexed Trunk,Step-to Gait Factors Limiting Gait Function Factors Limiting Gait Function Decreased Activity Tolerance, Decreased Strength,Limited Range of Motion,Pain,Poor Balance,Poor Safety Awareness M5 PT-IP Objective Assessments Start: 06/06/24 10:22 Freq: NEEDED Status: Active Protocol: Document 06/06/24 10:38 MB (Rec: 06/06/24 11:17 MB [id number]) Orientation Orientation/Cognition Level of Alertness Alert Orientation Name,Age,Birthday,Month,Date, Year,Day of Week,Place, Situation Language Function Ability No Deficits Noted Safety Awareness Decreased Safety Awareness Memory Description No Deficits Noted Gross Range of Motion Upper Extremity ROM Assessment Bilaterally Impaired Impairments Shoulders normal, elbow wrists and hands are swollen and painful and pt self-limits ROM Lower Extremity ROM Assessment Bilaterally Impaired Impairments Hips are normal and knees, ankles and feet are swollen and painful and pt self-limits ROM Strength Upper Extremity Strength Assessment Bilaterally Impaired Lower Extremity Strength Assessment Bilaterally Impaired Comments Strength Comments Pt cannot tolerate formal MMT d/t pain and range limitations , functional weakness B elbows , wrists, hands, knees, ankles and feet no greater than 2/5 observed Coordination Assessment Gross Coordination Gross Coordination Impaired Sensation Assessment Comments Sensation Comments Pt does not tolerate PT touching him d/t pain Muscle Tone Muscle Tone WNL Yes M6 PT-IP Treatment Start: 06/06/24 10:22 Freq: NEEDED Status: Active Protocol: Document 06/07/24 14:55 AB (Rec: 06/07/24 16:56 AB [id number]) Physical Therapy Treatment Education Education Provided Safety M7 PT-IP Assessment and Plan Start: 06/06/24 10:22 Freq: NEEDED Status: Active Protocol: Document 06/07/24 14:55 AB (Rec: 06/07/24 16:56 AB [id number]) PT Summary Assessment and Plan Potential Rehabilitation Potential Fair Summary Impairments Pain,ROM,Strength,Balance, Coordination,Sensation, Cognition,Bed Mobility, Transfers,Gait,Activity Tolerance Progress Towards Goals Slow Progress due to Pain,Slow Progress due to Medical Issues Assessment Summary pt requiring CGA to min A with ambulation using FWW but limited due to c/o increase pain. pt leans forward with R forearm on FWW for support and presents with increase UE use to support during walking. (+) posterior LOB when pt attempted to lift FWW up to simulate lifting to a step requiring min A for recovery. pt has his family to assist him at home. will continue to assess progress. Goals Bed Mobility Goal Independent Transfer Goal Independent,Front Wheeled Walker Gait Goal Independent,Front Wheel Walker Gait Distance 150 Other Goals Pt will ascend and descend platform step with LRAD and no more than CGA to allow safe home entry. Progress gait to without AD or to LRAD Days to Meet Goals 10 Frequency of Treatment Frequency Of Treatment Once a Day Treatment Plan Physical Therapy Treatment Plan Bed Mobility Training,Transfer Training,Gait Training, Therapeutic Exercise,Balance Retraining,Discharge Planning, Hot or Cold Pack,Neuromuscular Re-ed,Coordination Retraining ,Manual Therapy Recommendations To Nursing Amount of Assist Needed 1 Person Assist Discharge Recommendations PT Discharge Recommendations Home with Assistance Transportation Needs at Discharge Private Vehicle
[2024-06-07 16:00] VITALS: BP 101/58; PULSE 66; RESP 16; TEMP 36.6; O2SAT 98
[2024-06-07] MEDS: HYDROCODONE/ACET 5/325 TABLET 1 TAB PO ×3 (16:27→23:54)
--- NOTE | 2024-06-07 16:47 | PM.PN.1 ---
Subjective Subjective Interval history: From night doctor: 43-year-old man with past medical history of severe gout presents with multiple joint pain. Per the patient report, the patient has severe gout with multiple flare-up in the past. The patient states that he has multiple joints affected. The patient is on allopurinol daily with colchicine as needed when he has gout flare up. However over the last few days, the patient has multiple joint both in his upper and lower extremity with increasing pain and warmth. The patient denies any swelling in his joint. The patient did take multiple dose of colchicine at home without any relief. The patient also takes them oxycodone to help with his pain but was unsuccessful. Otherwise the patient denies any fever, chills, nausea, vomiting, diarrhea, chest pain or shortness of breath . In our emergency room, the patient was hemodynamically stable. WBC was 13 and hemoglobin at 10. ESR and CRP are elevated. Due to severe pain our ER physician had to give both oral opioid and IV Dilaudid. The patient also received colchicine, IV toradol and oral prednisone.? S: joints are stable today but still sore and swollen, pain still 8-9 / 10 today. Especially the knees and ankles. He takes chronic allopurinol 300 mg daily. Exam Vital Signs (past 8 hours): Oxygen Delivery Method Room Air Oxygen Flow Rate 0 Narrative Exam Narrative: NAD, alert and oriented. Fluent speech. Lungs are clear, normal rate and effort. Heart is regular, no murmur gallop or rub. Abdomen is soft, non distended. Extremities are free of edema. Swollen knees, not red or warm. Somewhat swollen ankles and MTPs, not red or warm. Minimally tender. Objective Labs 06/07/24 07:40 06/07/24 07:40 Labs: Laboratory Results - last 24 hr 06/07/24 07:40 Hgb 9.5 L Hct 29.3 L Sodium 134 L Potassium 4.6 Chloride 102 Carbon Dioxide 24 BUN 17 Creatinine 0.75 Estimated GFR > 60 BUN/Creatinine Ratio 22.7 H Glucose 109 H Calcium 8.7 PFSH Social History household members: significant other Smoking Status: Current some day smoker Assessment & Plan Assessment & Plan narrative: 1. Acute gout polyarthritis flare, present on admission and active. This is improving. -continue IV steroids, as well as colchicine. -increased opiate pain needs today -will try to find outpatient rheum records - PT evaluation ordered today. Code: Full Dispo: likely 1-2 days in the hospital, depending on response to steroids and ability for ambulation. Time-Based Coding :: [TOTAL MINUTES] spent with patient and on the chart (including review of chart, obtaining history, exam, reviewing outside data, placing orders, documenting exam and treatment plan, and counseling patient) on [DATE].
[2024-06-07 22:00] VITALS: BP 114/68; PULSE 68; RESP 20; TEMP 35.8; O2SAT 97
[2024-06-08] MEDS: HYDROCODONE/ACET 5/325 TABLET 1 TAB PO ×3 (04:05→11:21)
[2024-06-08 04:25] VITALS: BP 113/69; PULSE 72; RESP 20; TEMP 35.8; O2SAT 97
[2024-06-08] MEDS: KETOROLAC 30 MG/ML VIAL 15 MG IV (06:21)
[2024-06-08 08:00] VITALS: BP 105/64; PULSE 63; RESP 14; TEMP 36.7; O2SAT 99
[2024-06-08] MEDS: FAMOTIDINE 20 MG TABLET PO (08:15)
[2024-06-08] MEDS: methocarbamoL 500 MG TABLET 750 MG PO (08:15)
[2024-06-08] MEDS: SENNOSIDES 8.6 MG TABLET PO (08:16)
[2024-06-08] MEDS: predniSONE 20 MG TABLET 40 MG PO (08:16)
[2024-06-08] MEDS: COLCHICINE 0.6 MG TABLET PO (08:16)
[2024-06-08] MEDS: allopurinoL 100 MG TABLET 300 MG PO (08:16)
[2024-06-08] MEDS: polyethylene glycoL 3350 17 GM POWD.PACK PO (08:17)
--- NOTE | 2024-06-08 10:45 | PT.IPTN ---
Physical Therapy Treatment Note M2 PT-IP Current Condition Start: 06/06/24 10:22 Freq: NEEDED Status: Active Protocol: Document 06/06/24 10:38 MB (Rec: 06/06/24 11:17 MB [id number]) Physical Therapy Current Condition Current Condition Evaluation Date 06/06/24 Treatment Diagnosis Gout M3 PT-IP Subjective Start: 06/06/24 10:22 Freq: NEEDED Status: Active Protocol: Document 06/08/24 11:09 TS (Rec: 06/08/24 11:21 TS [id number]) Subjective Physical Therapy Visit Type Type Treatment Note Visit Start Time 10:45 Visit Stop Time 11:08 Number of MARINE REPORTER Visits 1 Physical Therapy Visit Comments Patient Comments Pt is agreeable to PT. Therapy Pain Assessment Pain When Pain Assessed At Rest Pain Present Pain Present Pain Reported M4 PT-IP Mobility and Gait Start: 06/06/24 10:22 Freq: NEEDED Status: Active Protocol: Document 06/08/24 11:09 TS (Rec: 06/08/24 11:21 TS [id number]) PT-Bed Mobility Assessment Supine to Sit Supine to Sit Standby Assistance Sit to Supine Sit to Supine Standby Assistance Scooting Scooting to Edge of Bed Standby Assistance PT-Transfer Assessment Sit to and From Stand Sit to and from Stand Standby Assistance Equipment Transfer Assistive Device Gait Belt,Front Wheeled Walker Orthotic/Prosthetic Devices or Brace: No Comments Mobility Comments Supine to sit SBA with HOB elevated, pt does not use R hand. STS with FWW SBA, pt leans R arm on FWW. He ambulated ~30' in the room SBA with a slow step to gait and leaning on FWW. He performs steps x1 with FWW CGA. Pt was left back in bed, all needs met. Gait Assessment Gait Gait Assistance Required: Standby Assistance Assistive Devices Assistive Device Gait Belt,Front Wheeled Walker Orthotic/Prosthetic Devices or Brace: No Gait Deviations General Gait Pattern Antalgic,Decreased Stride Length,Decreased Feet Clearance,Flexed Trunk,Step-to Gait Factors Limiting Gait Function Factors Limiting Gait Function Decreased Activity Tolerance, Decreased Strength,Limited Range of Motion,Pain,Poor Balance,Poor Safety Awareness Stair Climbing Assessment Evaluation Level of Assist On Stairs Contact Guard Assistance Devices Stair Climbing Assistive Devices Front Wheel Walker Technique/Endurance Stair Climbing Direction Ascend and Descend Stair Climbing Technique Step to Step Number of Steps Climbed 1 PT-Balance Assessment Sitting Balance and Reactions Static Sitting Balance Ability Good Dynamic Sitting Balance Ability Good Standing Balance and Reactions Static Standing Balance Ability Good Dynamic Standing Balance Ability Good Device Used FWW M5 PT-IP Objective Assessments Start: 06/06/24 10:22 Freq: NEEDED Status: Active Protocol: Document 06/06/24 10:38 MB (Rec: 06/06/24 11:17 MB [id number]) Orientation Orientation/Cognition Level of Alertness Alert Orientation Name,Age,Birthday,Month,Date, Year,Day of Week,Place, Situation Language Function Ability No Deficits Noted Safety Awareness Decreased Safety Awareness Memory Description No Deficits Noted Gross Range of Motion Upper Extremity ROM Assessment Bilaterally Impaired Impairments Shoulders normal, elbow wrists and hands are swollen and painful and pt self-limits ROM Lower Extremity ROM Assessment Bilaterally Impaired Impairments Hips are normal and knees, ankles and feet are swollen and painful and pt self-limits ROM Strength Upper Extremity Strength Assessment Bilaterally Impaired Lower Extremity Strength Assessment Bilaterally Impaired Comments Strength Comments Pt cannot tolerate formal MMT d/t pain and range limitations , functional weakness B elbows , wrists, hands, knees, ankles and feet no greater than 2/5 observed Coordination Assessment Gross Coordination Gross Coordination Impaired Sensation Assessment Comments Sensation Comments Pt does not tolerate PT touching him d/t pain Muscle Tone Muscle Tone WNL Yes M6 PT-IP Treatment Start: 06/06/24 10:22 Freq: NEEDED Status: Active Protocol: Document 06/08/24 11:09 TS (Rec: 06/08/24 11:21 [id number]) Physical Therapy Treatment Education Education Provided Safety M7 PT-IP Assessment and Plan Start: 06/06/24 10:22 Freq: NEEDED Status: Active Protocol: Document 06/08/24 11:09 TS (Rec: 06/08/24 11:21 TS [id number]) PT Summary Assessment and Plan Potential Rehabilitation Potential Fair Summary Impairments Pain,ROM,Strength,Balance, Coordination,Sensation, Cognition,Bed Mobility, Transfers,Gait,Activity Tolerance Progress Towards Goals Slow Progress due to Pain,Slow Progress due to Medical Issues Assessment Summary Wu is making some progress with his mobility but is limited by pain and ongoing medical issues. He continues to perform bed mobility and gait SBA. He leans on FWW with R arm for balance, R hand is too painful to grasp handle. He progressed to stairs x1 on platform step. PT is recommending pt return home with assist. Goals Bed Mobility Goal Independent Transfer Goal Independent,Front Wheeled Walker Gait Goal Independent,Front Wheel Walker Gait Distance 150 Other Goals Pt will ascend and descend platform step with LRAD and no more than CGA to allow safe home entry. Progress gait to without AD or to LRAD Days to Meet Goals 10 Frequency of Treatment Frequency Of Treatment Once a Day Treatment Plan Physical Therapy Treatment Plan Bed Mobility Training,Transfer Training,Gait Training, Therapeutic Exercise,Balance Retraining,Discharge Planning, Hot or Cold Pack,Neuromuscular Re-ed,Coordination Retraining ,Manual Therapy Weight Bearing Status Allowed Weight Bearing Amount (enter % No restrictions or #) (%) Recommendations To Nursing Amount of Assist Needed 1 Person Assist Discharge Recommendations PT Discharge Recommendations Home with Assistance Transportation Needs at Discharge Private Vehicle
--- NOTE | 2024-06-08 11:37 | P.DS_ITS ---
History of Present Illness History of Present Illness Date Patient Seen: 06/08/24 Time Patient Seen: 11:37 Chief complaint: Gout Flare Narrative: 43-year-old man with past medical history of severe gout presents with multiple joint pain. Per the patient report, the patient has severe gout with multiple flare-up in the past. The patient states that he has multiple joints affected. The patient is on allopurinol daily with colchicine as needed when he has gout flare up. However over the last few days, the patient has multiple joint both in his upper and lower extremity with increasing pain and warmth. The patient denies any swelling in his joint. The patient did take multiple dose of colchicine at home without any relief. The patient also takes them oxycodone to help with his pain but was unsuccessful. Otherwise the patient denies any fever, chills, nausea, vomiting, diarrhea, chest pain or shortness of breath . In our emergency room, the patient was hemodynamically stable. WBC was 13 and hemoglobin at 10. ESR and CRP are elevated. Due to severe pain our ER physician had to give both oral opioid and IV Dilaudid. The patient also received colchicine, IV toradol and oral prednisone.? Discharge Providers Provider Date of admission: 06/08/24 10:12 Discharge Date: 06/08/24 Primary care physician: Doctor Cristal MD Consults: 06/05/24 22:02 Consult to Occupational Therapy Evaluate & Treat Comment: Physician Instructions: Evaluate and treat Consult to Physical Therapy Evaluate & Treat Comment: Physician Instructions: Evaluate and Treat Discharge provider: Terry Little DO Summary Hospital Course Discharge Diagnosis: 1. Acute gout polyarthritis flare, present on admission and active. Hospital Course: This is a 43 year old male with PMH of gout who presented with polyarthralgia and presumed gout flare. He improved with steroids and pain medication. He took a few days to improve, but did have slow improvement. Initially he had difficulty ambulating due to pain, was seen by PT. He had improvement and felt well enough and mobile enough to discharge home on 06/08. He was given a prescription for 40 mg of prednisone to continue until his symptoms resolve, though this timeframe is unknown. He was recommended to follow up with PCP to discuss ongoing steroid management for his flare after discharge, and to discuss taper of prednisone after his symptoms improve. Time Spent with Patient Time spent: Greater than 30 minutes Exam Vital Signs (past 8 hours): - 06/08/24 04:25 06/08/24 08:00 Temperature 96.4 F L 98.0 F Pulse Rate 72 63 Respiratory Rate 20 14 Blood Pressure 113/69 105/64 Pulse Oximetry 97 99 Oxygen Flow Rate 0 0 Oxygen Delivery Method Room Air Oxygen Flow Rate 0 Narrative Exam Narrative: NAD, alert and oriented. Fluent speech. Lungs are clear, normal rate and effort. Heart is regular, no murmur gallop or rub. Abdomen is soft, non distended. Extremities are free of edema. Swollen knees, not red or warm. Somewhat swollen ankles and MTPs, not red or warm. Minimally tender. Objective Labs 06/07/24 07:40 06/07/24 07:40 [facility] Social History household members: significant other Smoking Status: Current some day smoker Discharge Plan Discharge Plan Patient Disposition: Home Provider Discharge Comment: You were admitted to the hospital with gout flare. Improved with steroids. Continue steroids until flare resolved then you need to taper. I have sent 2 weeks of steroids for now, please follow up with your PCP to discuss ongoing management of gout and further adjustments of steroids. Discharge orders & Medications Prescriptions: New prednisone 20 mg Tablet 40 mg PO DAILY 14 Days Qty: 28 0RF Continued methocarbamol 750 mg tablet 750 mg PO TID Qty: 20 0RF allopurinol 100 mg tablet 300 mg PO DAILY Changed oxycodone 5 mg tablet 5 mg PO Q3-4H PRN (Reason: Pain (Scale Score 4-6)) Qty: 30 0RF Follow up/Referrals: Doctor Bee MD [Primary Care Provider] - Diet/Activity/Treatments Diet: Diet as Tolerated and Regular Activity: As tolerated, no restrictions. Visit Report/Discharge Packet Instructions: DI for Gout, Prednisone Stand Alone Forms: Patient Portal/API, Stroke Signs & Symptoms Discharge Data Primary Care Provider: Doctor Cristal
--- NOTE | 2024-06-08 13:44 | PC.NURSE ---
D/c summary reviewed with Pt. Discussed importance of no driving while taking narcotics. Pt agreeable to d/c, and confirmed all belongings were with him. Pt exited via w/c with RADIO RIGGER and friend to private vehicle.
== END 2024-06-08 13:47 | disposition home or self-care (01) | DRG 554 ==
LOC: ED 17:57 → AC 21:48
PROVIDERS: Internal Medicine; Admitting Provider Internal Medicine; Emergency Provider Emergency Medicine; Visit Provider Internal Medicine
DX: M10.9 Gout, unspecified (principal); F17.200 Nicotine dependence, unspecified, uncomplicated
CPT/HCPCS: 0241U; 36415; 80048; 81003; 81015; 84550; 85014; 85018; 85025; 85651; 86140; 87040; 87086; 96374; 96375; 97116; 97161; 97166; 97530; 99284; G0378; A9270; J1170; J1885

== ENCOUNTER → 2024-08-19 16:08 | Outpatient (CLI) | payer BC, SELFPAY ==
[2024-06-05 23:01] VITALS: BMI 28.7
[2024-08-19 17:45] LABS: Cholesterol 209 mg/dL (140-199); HDL Cholesterol 61 mg/dL (40-60); LDL Cholesterol Calculated 120 mg/dL (<100); Triglycerides 140 mg/dL (35-150)
[2024-08-19 17:55] LABS: Rheumatoid Factor < 8.6 IU/mL (<12.0)
[2024-08-19 18:27] LABS: Erythrocyte Sedimentation Rate 27 MM/HR (0-15)
[2024-08-23 14:12] LABS: ANA Screen, IFA Negative (.)
== END ==
PROVIDERS: PCP Family Medicine; Referring Provider Family Medicine; Visit Provider Family Medicine
DX: Z13.220 Encounter for screening for lipoid disorders (principal); M25.50 Pain in unspecified joint; M10.9 Gout, unspecified; R70.0 Elevated erythrocyte sedimentation rate
CPT/HCPCS: 36415; 80061; 84550; 85651; 86038; 86430